=== PATIENT | female | born 1965 | race Caucasian/White ===

== ENCOUNTER 2017-06-11 13:18 | Emergency (ER) | payer BC ==
[~2017-06-11] VITALS: Ht 165.1 cm; Wt 105.0 kg
[2017-06-11 13:24] VITALS: TEMP 36.9; Ht 165.1 cm; Wt 105.0 kg
[2017-06-11] MEDS ORDERED: MoRPHine SULFATE 10 MG/ML CARP/VIAL IV STA (13:54)
[2017-06-11] MEDS ORDERED: ONDANSETRON INJ 2 MG/ML 2 ML VIAL IV STA (13:54)
[2017-06-11] MEDS ORDERED: SODIUM CHLORIDE 0.9% 1000ML 1,000 ML IV STA (13:54)
[2017-06-11] MEDS ORDERED: IBUP-103 PO (14:16)
[2017-06-11] MEDS ORDERED: ZNTT/150 PO (14:16)
[2017-06-11] MEDS ORDERED: LEVO200T6 PO (14:16)
[2017-06-11 14:32] LABS: BASO % 0.4 %; BASO ABS # 0.03 K/uL (0-0.2); COMPLETE YES; EOS % 5.2 %; HEMATOCRIT 40.2 % (37-47); IG% 0.1 %; LYMPH % 33.9 %; LYMPH ABS # 2.35 K/uL (1.2-3.4); MEAN CELL VOLUME 89.7 fL (80-100); MEAN CORPUSCULAR HEMOGLOBIN 30.1 pg (25-34); MEAN CORPUSCULAR HGB CONC 33.6 g/dl (32-36); MEAN PLATELET VOLUME 9.6 fL (7.4-10.4); MONO % 8.9 %; NEUT % 51.5 %; PLATELET COUNT 281 K/uL (130-400); RED BLOOD COUNT 4.48 M/uL (4.2-5.4); WHITE BLOOD COUNT 6.93 K/uL (4.8-10.8)
[2017-06-11 14:43] LABS: ALT/SGPT 18 U/L (12-78); AST/SGOT 14 U/L (15-37); BLOOD UREA NITROGEN 13 mg/dl (7-18); CALCIUM 8.6 mg/dl (8.5-10.1); CARBON DIOXIDE 27 mmol/L (21-32); CHLORIDE 106 mmol/L (98-107); CREATININE 0.85 mg/dl (0.60-1.20); GLUCOSE 102 mg/dl (70-99); POTASSIUM 3.7 mmol/L (3.5-5.1); SODIUM 139 mmol/L (136-145)
[2017-06-11 14:48] LABS: ALKALINE PHOSPHATASE 95 U/L (45-117)
--- NOTE | 2017-06-11 14:53 | DIAGNOSTIC IMAGING REPORT ---
CHEST ONE VIEW PORTABLE HISTORY: 52 years-old Female CHEST PAIN acute atypical chest pain. COMPARISON: None available TECHNIQUE: Portable upright AP view of the chest FINDINGS: Cardiomediastinal and hilar silhouettes are within normal limits. No pneumothorax, pleural effusion, focal airspace consolidation or overt pulmonary edema. The bones appear grossly intact. IMPRESSION: No acute cardiopulmonary process. The above report was generated using voice recognition software. It may contain grammatical, syntax or spelling errors. Electronically signed by: Chuckie Perdue M.D. 06/11/2017 2:52 PM Dictated Date/Time: 06/11/2017 2:51 PM
--- NOTE | 2017-06-11 15:26 | DIAGNOSTIC IMAGING REPORT ---
ABDOMINAL ULTRASOUND, RIGHT UPPER QUADRANT HISTORY: Epigastric pain. Back pain.. COMPARISON: None. FINDINGS: Pancreas: The pancreatic tail is obscured by overlying bowel gas. The remaining portions of the pancreas are within normal limits. Liver: The liver is echogenic consistent with fatty change. 20 cm in length. Gallbladder: No gallbladder wall thickening. No gallstones. CBD: 6 mm. Right kidney: No hydronephrosis. IMPRESSION: 1. Normal gallbladder. No gallstones. 2. Hepatic steatosis. Electronically signed by: González Lucio M.D. 06/11/2017 3:24 PM Dictated Date/Time: 06/11/2017 3:23 PM
[2017-06-11 18:34] VITALS: BP 114/76; PULSE 72; O2SAT 94
--- NOTE | 2017-06-11 22:59 | EMERGENCY ROOM VISIT NOTE ---
ED Visit Note First contact with patient: 13:35 Chief Complaint: I'm having chest pain. History of Present Illness: Ms. Estrada is a 52 year-old white female ambulates into the ED accompanied by her complaining of mid to lower sternal chest pain. Historically patient reports gastroparesis. She denies any personal history of coronary artery disease and denies all risk factors for coronary artery disease. She also reports there is no family history of coronary artery disease. A she reports she was feeling fine over the last few days. She reports that approximately 11 hours ago she was awoken from sleep with and acute onset of mid to lower sternal pain. Since that time her pain has been constant. She describes her discomfort as "someone trying to push a board into her chest". She rates her discomfort as 8/10. Her pain is radiating through the chest and into her thoracic back. Her pain worsens with deep inspiration and lying flat. She has mild relief of her discomfort when she is sitting more upright. She reports she took a ranitidine tablet at the onset of her pain without relief and then approximately 5 hours ago she took 2 ibuprofen tablets without relief. Associated with her pain she reports she's been nauseated but has not vomited and because she is having some discomfort with deep inspiration she has mild difficulty breathing. She denies any associated fevers, chills, sweats, skin eruptions, skin color changes, upper respiratory tract symptoms, wheezing, cough, shortness of breath , orthopnea, previous clots, claudication, cramping, recent surgery/inactivity/ extended travel, abdominal pain, diarrhea, constipation, rectal bleeding, black/ tarry stools, urinary symptoms. Review of Systems: As noted above in history of present illness. All body systems were reviewed and found to be negative as noted above. Past Medical History: As previously noted both thyroidism, gastroparesis. Current Medications: Levothyroxine, ranitidine, ibuprofen. Allergies to Medications: Patient denies. Social History: Patient is currently employed; she feels safe in her home environment; she denies tobacco use and admits to alcohol use. Physical Examination: Vital Signs: Date Time Temp Pulse Resp B/P (MAP) Pulse Ox O2 Delivery O2 Flow Rate FiO2 06/11/17 18:34 72 18 114/76 94 06/11/17 17:28 72 18 128/84 94 Room Air 06/11/17 17:27 64 06/11/17 15:58 63 18 153/87 97 Room Air 06/11/17 14:50 70 18 128/79 98 Room Air 06/11/17 14:05 Room Air 06/11/17 13:48 66 06/11/17 13:24 36.9 61 20 151/109 97 Room Air GENERAL: 52-year-old female in moderate distress due to pain, nontoxic-appearing , afebrile and hemodynamically stable. NEUROLOGICAL: Awake, alert and oriented to person, place and time. Answering questions appropriately and following commands. Normal gait. Good hand eye coordination. SKIN: Warm, dry and pink. No soft tissue eruptions or trauma noted. HEENT: Atraumatic and normocephalic. PERRLA. Sclera white and conjunctiva pink. Oral cavity moist and pink. Pharynx is nonerythematous or edematous. Speech normal. No lymphadenopathy. Trachea midline. No jugular venous distention. No carotid bruits. BACK: No tenderness over the bony spine and no tenderness throughout the paraspinous muscles. No CVA tenderness. THORAX: Lungs sounds are clear to auscultation and equal bilaterally with symmetrical chest wall. No wheezing, rales or rhonchi. No crepitus, tenderness , subcutaneous air or deformities noted. HEART: Regular rate and rhythm. No gallops, rubs or murmurs are appreciated. No lifts, heaves or thrills. PMI is not displaced. ABDOMEN: Obese and soft with moderate tenderness in the epigastrium and mild tenderness in the right upper quadrant. Decreased bowel sounds in all quadrants. No guarding, rigidity or organomegaly. EXTREMITIES: Moves all extremities well on command and with purpose. All distal neurovascular statuses are intact and equal bilaterally. Mild bilateral dependent edema. No calf tenderness or cords. ED Course: Patient is assessed as noted above. Laboratory Testing: Test 06/11/17 14:15 06/11/17 17:24 Range/Units White Blood Count 6.93 4.8-10.8 K/uL Red Blood Count 4.48 4.2-5.4 M/uL Hemoglobin 13.5 12.0-16.0 g/dL Hematocrit 40.2 37-47 % Mean Corpuscular Volume 89.7 80-100 fL Mean Corpuscular Hemoglobin 30.1 25-34 pg Mean Corpuscular Hemoglobin Concent 33.6 32-36 g/dl Platelet Count 281 130-400 K/uL Mean Platelet Volume 9.6 7.4-10.4 fL Neutrophils (%) (Auto) 51.5 % Lymphocytes (%) (Auto) 33.9 % Monocytes (%) (Auto) 8.9 % Eosinophils (%) (Auto) 5.2 % Basophils (%) (Auto) 0.4 % Neutrophils # (Auto) 3.56 1.4-6.5 K/uL Lymphocytes # (Auto) 2.35 1.2-3.4 K/uL Monocytes # (Auto) 0.62 0.11-0.59 K/uL Eosinophils # (Auto) 0.36 0-0.5 K/uL Basophils # (Auto) 0.03 0-0.2 K/uL RDW Standard Deviation 40.1 36.4-46.3 fL RDW Coefficient of Variation 12.4 11.5-14.5 % Immature Granulocyte % (Auto) 0.1 % Immature Granulocyte # (Auto) 0.01 0.00-0.02 K/uL Sodium Level 139 136-145 mmol/L Potassium Level 3.7 3.5-5.1 mmol/L Chloride Level 106 98-107 mmol/L Carbon Dioxide Level 27 21-32 mmol/L Anion Gap 6.0 3-11 mmol/L Blood Urea Nitrogen 13 7-18 mg/dl Creatinine 0.85 0.60-1.20 mg/dl Est Creatinine Clear Calc Drug Dose 91.0 ml/min Estimated GFR () 90.0 Estimated GFR (Non- 77.7 BUN/Creatinine Ratio 15.0 10-20 Random Glucose 102 70-99 mg/dl Calcium Level 8.6 8.5-10.1 mg/dl Total Bilirubin 0.3 0.2-1 mg/dl Direct Bilirubin < 0.1 0-0.2 mg/dl Aspartate Amino Transf (AST/SGOT) 14 15-37 U/L Alanine Aminotransferase (ALT/SGPT) 18 12-78 U/L Alkaline Phosphatase 95 45-117 U/L Troponin I < 0.015 < 0.015 0-0.045 ng/ml Total Protein 7.3 6.4-8.2 gm/dl Albumin 3.4 3.4-5.0 gm/dl Lipase 215 73-393 U/L Chest X-Rays: Were read by myself and the radiologist shows no acute infiltrates , effusions or pneumothorax. Normal heart silhouette and bony anatomy. No free air under the diaphragm. Gallbladder Ultrasound: Was reviewed by myself and shows a normal-appearing liver without gallstones or gallbladder wall thickening, fatty changes to the liver and normal-appearing kidney and pancreas. EKG #1: Was read by myself and reviewed with Dr. Lamb; shows sinus rhythm with a ventricular rate of 64 bpm. An occasional premature ventricular complex. No ischemic or infarction changes. Medical records were reviewed and no previous were available for comparison's. EKG #2: Was read by myself and shows sinus rhythm with a ventricular rate of 60 bpm with an occasional PVC. No ischemic changes indicating ischemia, injury infarction. This was compared to previous and no acute changes were noted. Patient was hydrated with normal saline and she received 6 mg of morphine IV for pain and 4 mg of Zofran IV. Patient was reassessed multiple times during her stay in the emergency department. Patient's case was reviewed with Dr. Lamb; we agreed on diagnostic approach, treatment, disposition and plan. Clinical Impression: Noncardiac chest pain. Decision-Making: Initially my differential diagnosis I considered acute coronary syndrome, thoracic aneurysm, pneumothorax, pneumonia, pulmonary embolism, pancreatitis, hepatitis, cholecystitis and other causes. Disposition: Patient discharged home in stable condition accompanied by her ; prior to departure she was reassessed and subjectively reported she was feeling much better and rated her discomfort 3/10 and reported resolution of nausea. Plan: Patient was encouraged to avoid NSAID use and use 650 mg of acetaminophen every 6 hours as needed for pain. Patient is encouraged to continue her other medications. Patient is encouraged to stay well-hydrated and use a bland diet for the next 48 hours. Patient was encouraged to follow-up with family physician for recheck. Patient was encouraged return ED for worsening/uncontrolled pain, shortness of breath/wheezing, fevers, bloody stools, bloody vomitus or any new/concerning symptoms.
== END 2017-06-11 18:35 | disposition home or self-care (01) ==
LOC: C.EDB 13:19 → C.EDC 18:35
DX: R07.89 Other chest pain (principal); K31.84 Gastroparesis; E03.9 Hypothyroidism, unspecified; Z79.899 Other long term (current) drug therapy; E66.9 Obesity, unspecified; Z68.38 Body mass index [BMI] 38.0-38.9, adult